=== PATIENT | female | born 1945 | race Caucasian/White ===

== ENCOUNTER 2023-09-01 12:58 | Outpatient (CLI) | payer MEDICARE | END 2023-09-01 12:59 | disposition home or self-care (01) | LOC: CSHMRI 12:58 | PROVIDERS: ATTEND Family Medicine | DX: S43.101A Unspecified dislocation of right acromioclavicular joint, initial encounter (principal); M25.511 Pain in right shoulder; S46.011A Strain of muscle(s) and tendon(s) of the rotator cuff of right shoulder, initial encounter; M77.8 Other enthesopathies, not elsewhere classified; M62.89 Other specified disorders of muscle; M89.511 Osteolysis, right shoulder; S43.431A Superior glenoid labrum lesion of right shoulder, initial encounter ==